=== PATIENT | male | born 2000 | race Caucasian/White ===

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

== ENCOUNTER 2024-05-21 19:27 | Emergency (ER) | payer BC, SELFPAY ==
[2024-05-21 19:54] VITALS: BP 126/80; PULSE 97; RESP 16; TEMP 38; O2SAT 98
[2024-05-21 20:17] LABS: EDMONONEGPOS Negative (Positive)
--- NOTE | 2024-05-21 20:50 | ED.URI ---
HPI - URI/Sore Throat General Chief Complaint: Upper Respiratory Infection Stated Complaint: Sore Throat/Fever Time Seen by Provider: 05/21/24 20:40 Source: patient, family (father) and RN notes reviewed Mode of arrival: ambulatory Limitations: no limitations History of Present Illness HPI Narrative: Patient presents today with a 5 day history of fever up to 101, sore throat, occasional productive cough, nasal congestion. States fever is now 99.4. Denies shortness of breath. Currently rates his pain 7/10 and has been taking Robitussin, ibuprofen. His pain is primarily in his throat and is causing him to not sleep at night for more than a couple of hours at a time. He was seen at a different Urgent Care 3 days ago where rapid strep was done and was negative. They put him on a course of Keflex due to the appearance of his throat. He has been taking this without improvement of his symptoms. He has completed a home COVID and influenza test which was also negative. He is primarily here today due to his significant sore throat. Related Data Home Medications ?Medication ?Instructions ?Recorded ?Confirmed ?Last Taken ?Type cephalexin 500 mg capsule mg 05/21/24 Unknown History Allergies Allergy/AdvReac Type Severity Reaction Status Date / Time No Known Allergies Allergy Verified 05/21/24 19:54 Review of Systems Review of Systems: CONSTITUTIONAL: Denies body aches, chills, or sweats.+ fever EYES: Denies visual changes, redness, or discharge. ENT: Denies rhinorrhea, or otalgia.+ congestion, sore throat CARDIOVASCULAR: Denies chest pain, palpitations, or edema. RESPIRATORY: Denies dyspnea.+ occasional cough GASTROINTESTINAL: Denies abdominal pain, nausea, vomiting, or diarrhea. GENITOURINARY: Denies dysuria or hematuria. SKIN: Denies rash, itching, or wounds. MUSCULOSKELETAL: Denies back pain, joint pain, or myalgia. NEUROLOGIC: Denies headache, numbness, tingling, or weakness. PSYCH: Denies depression or anxiety. [facility] Past Medical History Medical History Establishing care with new doctor, encounter for Screening for diabetes mellitus Screening for thyroid disorder Screening, deficiency anemia, iron ADHD Surgical History Surgical History [place] teeth removed Family History Family History Father Heart disease Hypertension Grandparent Hypertension Grandparent Diabetes mellitus Hypertension Heart disease Social History Social History Smoking status: Never smoker Alcohol intake: never Substance use: never Gender identity (if verbalized by the patient): Male Agree to blood products: Yes Comments At time of signature, I have reviewed and agree with nursing past medical, surgical, social and family history unless otherwise noted. Please see nursing chart for further information. There is no relevant family history pertinent to the presenting complaint Exam Narrative: GENERAL: Well-appearing, well-nourished, and in no acute distress. HEAD: Normocephalic, atraumatic. EYES: EOMI. No redness or drainage. Conjunctivae normal. ENT: Mucous membranes pink and moist. Nares clear. No rhinorrhea. TMs normal bilaterally. Throat erythematous and very mildly edematous without exudate. Uvula midline. NECK: Normal AROM. Supple. No lymphadenopathy. CHEST: No respiratory distress. Clear to auscultation. HEART: Regular rate and rhythm. No murmur appreciated. EXTREMITIES: Normal range of motion. No edema. SKIN: Warm, dry, no rash. Capillary refill normal. Normal skin turgor. NEURO: No focal deficits. Alert and oriented x3. Gait steady. PSYCH: Normal affect. No signs of depression or anxiety. Course Course Level of Care: Express Care Visit Vital Signs Vital signs: Vital Signs Temperature 100.4 F H 05/21/24 19:54 Pulse Rate 97 05/21/24 19:54 Respiratory Rate 16 05/21/24 19:54 Blood Pressure 126/80 05/21/24 19:54 Pulse Oximetry 98 05/21/24 19:54 Temperature 100.4 F H 05/21/24 19:54 Pulse Rate 97 05/21/24 19:54 Respiratory Rate 16 05/21/24 19:54 Blood Pressure 126/80 05/21/24 19:54 Pulse Oximetry 98 05/21/24 19:54 Reviewed MDM - URI/Sore Throat MDM Narrative Medical decision making narrative: Monospot negative. Patient will be started on some prednisone to help with his inflammation as well as some Tylenol 3 to help with his severe throat pain. Patient agrees with plan. Anticipatory guidance given. ED precautions given. Differential Diagnosis Differential diagnosis: Likely upper respiratory infection, viral infection, bronchitis, pharyngitis and other (Mononucleosis) Lab Data Attestation: I reviewed the patient's lab results. Labs: Lab Results 05/21/24 Range/Units 19:58 POC Monoscreen Negative (Positive) Critical Care Time Critical Care Time Critical Care Time: No Discharge Plan Discharge Clinical Impression: Upper respiratory infection, Pharyngitis Patient Disposition: Home, Self-Care Condition: Stable Instructions: Pharyngitis (ED) Additional Instructions: Please take all medications as prescribed. Do not drive within 8 hours of taking the Tylenol 3 as it can make you drowsy. Follow-up with your PCP in 3 days if symptoms are not improving. As discussed, please go to the ER symptoms worsen to include shortness of breath or difficulty swallowing. Your blood pressure was elevated above 120/80 today at Urgent Care. This puts you above the threshold for follow up. Please schedule a followup visit with your personal physician as soon as possible, for further evaluation and treatment. Even blood pressure exceeding 120/80 may indicate pre-hypertension. Patient Language: Thai Prescriptions: New prednisone 50 mg tablet 50 mg PO DAILY 5 Days Qty: 5 0RF acetaminophen-codeine 300-30 mg tablet 1 tablet PO Q8H PRN (Reason: pain) Qty: 15 0RF No Action cephalexin 500 mg capsule lisdexamfetamine [Vyvanse] 20 mg capsule 20 mg PO DAILY Qty: 30 0RF Rx Instructions: Brand name only. Patient states name brand is more effective Follow-up/Referrals: Abelardo Scott MD [Primary Care Provider] - Stand Alone Forms: Work/School Release IP Time of Disposition: 20:55
== END 2024-05-21 20:58 | disposition home or self-care (01) ==
PROVIDERS: Emergency Provider Nurse Practitioner; PCP Family Medicine
DX: J06.9 Acute upper respiratory infection, unspecified (principal)
CPT/HCPCS: 36416; 86308; 99213; G0463